=== PATIENT | male | born 1995 | race Caucasian/White ===

== ENCOUNTER 2018-06-06 03:03 | Emergency (ER) | payer SELFPAY ==
[2018-06-06] MEDS: Sodium Chloride 0.9% 1,000 ML IV ONE (03:59)
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
[2018-06-06] MEDS ORDERED: Sodium Chloride 0.9% 1,000 ML IV ONE (04:15)
[2018-06-06 05:47] LABS: BASO % 0.3 % (0.0-2.0); EOS % 0.2 % (0.0-4.0); HEMOGLOBIN 14.2 g/dL (12.0-18.0); LYMPH # 2.4 K/uL (1.0-4.3); LYMPH % 39.2 % (20.0-40.0); MEAN CORPUSCULAR HEMOGLOBIN 29.5 pg (27.0-31.0); MEAN CORPUSCULAR HGB CONC 33.2 g/dL (33.0-37.0); MEAN PLATELET VOLUME 8.3 fl (7.2-11.7); MONO # 0.4 K/uL (0.0-0.8); MONO % 5.9 % (0.0-10.0); NEUT # 3.3 K/uL (1.8-7.0); NEUT % 54.4 % (50.0-75.0); NRBC % 0.1 % (0.0-0.0); RBC 4.81 Mil/uL (4.40-5.90); RED CELL DISTRIBUTION WIDTH 13.1 % (11.5-14.5)
[2018-06-06 05:58] LABS: ALB/GLOB RATIO 1.4 (1.0-2.1); ALBUMIN 4.6 g/dL (3.5-5.0); ALT/SGPT 33 U/L (21-72); AST/SGOT 29 U/L (17-59); BLOOD UREA NITROGEN 12 mg/dl (9-20); CALCIUM 9.3 mg/dL (8.4-10.2); GFR NON-AFRICAN AMERICAN > 60
--- NOTE | 2018-06-06 07:13 | ED PDOC ---
- Laboratory Results Result Diagrams: 06/06/18 04:00 06/06/18 04:00 - ECG O2 Sat by Pulse Oximetry: 95 (RA) Pulse Ox Interpretation: Normal - Progress Re-evaluation Time: 10:55 Condition: Improved (awake alert oriented x 3 no focal neuro deficts) Medical Decision Making Medical Decision Makin Patient endorsed by Dr. Villeda, pending sobriety. Scribe Attestation: Documented by Kaitlin Stewart, acting as a scribe for Randy Morris MD. Provider Scribe Attestation: All medical record entries made by the Scribe were at my direction and personally dictated by me. I have reviewed the chart and agree that the record accurately reflects my personal performance of the history, physical exam, medical decision making, and the department course for this patient. I have also personally directed, reviewed, and agree with the discharge instructions and disposition. Disposition - Clinical Impression Clinical Impression: Alcohol intoxication - POA Present On Arrival: None - Disposition Disposition: Routine/Home Disposition Time: 10:56 Condition: FAIR Instructions: Alcohol Abuse and Alcoholism (DC) Forms: [facility] (Nepali)
[2018-06-06 07:45] VITALS: RESP 19
[2018-06-06 08:40] VITALS: PULSE 78
[2018-06-06 11:01] VITALS: BP 120/70; TEMP 97.6; O2SAT 98
== END 2018-06-06 11:02 | disposition home or self-care (01) ==
LOC: H.ER 03:03
DX: F10.129 Alcohol abuse with intoxication, unspecified (principal)
CPT/HCPCS: 80053; 85025; 96372; 96374; 99285; G0480; J1630; J2060; J2405; J7040